=== PATIENT | female | born 1975 | race American Indian/Alaskan Native ===

== ENCOUNTER 2017-01-12 20:01 | Emergency (ER) | payer SELFPAY ==
[2017-01-12 20:21] VITALS: BP 146/95
[2017-01-12 21:03] LABS: Basophils % (Auto) 0.7 % (0.0-1.8); Eosinophils % (Auto) 1.4 % (0.0-4.3); Hematocrit 28.1 % (30.3-42.9); Hemoglobin 8.9 gm/dl (10.1-14.3); Mean Corpuscular HGB Conc 32 % (30-34); Mean Corpuscular Hemoglobin 27 pg (28-32); Mean Corpuscular Volume 84 fl (79-97); Platelet Count 350 K/mm3 (140-440); Red Blood Count 3.37 M/mm3 (3.65-5.03); Red Cell Distribution Width 18.5 % (13.2-15.2); White Blood Count 7.4 K/mm3 (4.5-11.0)
[2017-01-12 21:08] LABS: Anion Gap 17 mmol/L; BUN/Creatinine Ratio 18.75; Blood Urea Nitrogen 15 mg/dL (7-17); Calcium 8.3 mg/dL (8.4-10.2); Carbon Dioxide 23 mmol/L (22-30); Chloride 106.2 mmol/L (98-107); Glucose 105 mg/dL (65-100); Potassium 3.9 mmol/L (3.6-5.0); Sodium 142 mmol/L (137-145)
--- NOTE | 2017-01-12 21:09 | Cat Scan Report ---
FINAL REPORT PROCEDURE: CT HEAD/BRAIN WO CON TECHNIQUE: Computerized tomography of the head was performed without contrast material. HISTORY: neuro deficits \T\lt; 6hrs or sx present upon awakening COMPARISON: No prior studies are available for comparison. FINDINGS: Skull and scalp: Normal. Paranasal sinuses: Normal. Ventricles and subarachnoid spaces: Normal. Cerebrum: No evidence of hemorrhage, acute infarction or mass . Cerebellum and brainstem: No evidence of hemorrhage, acute infarction or mass. Vasculature: Normal. Comments: None. IMPRESSION: Normal Examination
[2017-01-12 21:12] LABS: INR 1.04 (0.87-1.13)
[2017-01-12 21:13] LABS: Partial Thromboplastin Time 26.9 Sec. (24.2-36.6)
== END 2017-01-12 22:57 | disposition left against medical advice (07) ==
LOC: ED 20:01
DX: R07.9 Chest pain, unspecified (principal); Z53.21 Procedure and treatment not carried out due to patient leaving prior to being seen by health care provider
CPT/HCPCS: 36415; 70450; 80048; 84484; 84703; 85025; 85610; 85730; 93005; 93010

== ENCOUNTER 2017-09-14 23:53 | Emergency (ER) | payer MEDICAID ==
[2017-09-15 00:54] VITALS: BP 132/77
--- NOTE | 2017-09-15 03:45 | Emergency Department Report ---
ED Recheck HPI - General Chief Complaint: Recheck/Abnormal Lab/Rx Stated Complaint: BP HIGH Time Seen by Provider: 09/15/17 03:41 Source: patient Mode of arrival: Ambulatory Limitations: No Limitations - History of Present Illness Initial Comments: 42-year-old obese female comes in for evaluation of blood pressure and blurred vision at the urgent care today. Patient states that her blood pressure is 187/ 107 at urgent care. Patient reports that she's missed 3 days of her clonidine. Patient was instructed to come to the emergency room for evaluation. Patient went home took her daily dose of clonidine prior to coming to the emergency room. Patient arrived resolved and blurred vision blood pressure normotensive at 132/77 she denies any chest pain or shortness of breathing no other complaints. Patient reports that she is almost out of her prescriptions and has no refills and requesting a medication refill. Patient is followed by Dr. Guanaco Lion and has not seen him in over a year. Patient reports that she is not able to follow up with her PCP in about 2 weeks secondary to this she works. Patient has no known drug allergies takes clonidine 0.1 mg daily. MD Complaint: medication refill request -: days(s) (1) Returns Today for: request for prescription Context: ran out of medication Associated Symptoms: other (blurred vision which has resolved since taking her blood pressure medicine) - Related Data Previous Rx's Medication Instructions Recorded Last Taken Type Amoxicillin/K Clav Tab [Augmentin 1 tab PO Q12HR #20 tab 07/20/15 Unknown Rx 875 mg] Ibuprofen [Motrin] 600 mg PO Q8H PRN #30 tablet 07/20/15 Unknown Rx Lisinopril/Hydrochlorothiazide 1 tab PO BID #30 tablet 07/20/15 Unknown Rx [Zestoretic 20-25 mg] Prednisone [predniSONE 10 mg 10 mg PO .TAPER #1 tab.ds.pk 07/20/15 Unknown Rx (6-Day Pack, 21 Tabs)] Promethazine /Codeine 5 ml PO Q6H PRN #150 udc 07/20/15 Unknown Rx [Phenergan/Codeine 6.25-10 mg/5 ml] cloNIDine [Catapres] 0.1 mg PO BID #60 tablet 09/15/17 Unknown Rx Allergies Allergy/AdvReac Type Severity Reaction Status Date / Time No Known Allergies Allergy Unverified 07/20/15 19:58 ED Review of Systems ROS: Stated complaint: BP HIGH Other details as noted in HPI Constitutional: denies: chills, fever Eyes: denies: eye pain, eye discharge, vision change ENT: denies: ear pain, throat pain Respiratory: denies: cough, shortness of breath, wheezing Cardiovascular: denies: chest pain, palpitations Endocrine: no symptoms reported Gastrointestinal: denies: abdominal pain, nausea, diarrhea Genitourinary: denies: urgency, dysuria, discharge Musculoskeletal: denies: back pain, joint swelling, arthralgia Skin: denies: rash, lesions Neurological: denies: headache, weakness, paresthesias Psychiatric: denies: anxiety, depression Hematological/Lymphatic: denies: easy bleeding, easy bruising ED Past Medical Hx - Past Medical History Previous Medical History?: Yes Hx Hypertension: Yes Additional medical history: Obesity. Family Hx CVA MTR 67, Ftr 79 both of CVA - Surgical History Past Surgical History?: No - Social History Smoking Status: Never Smoker Substance Use Type: None - Medications Home Medications: Home Medications Medication Instructions Recorded Confirmed Last Taken Type Amoxicillin/K Clav Tab [Augmentin 1 tab PO Q12HR #20 tab 07/20/15 Unknown Rx 875 mg] Ibuprofen [Motrin] 600 mg PO Q8H PRN #30 tablet 07/20/15 Unknown Rx Lisinopril/Hydrochlorothiazide 1 tab PO BID #30 tablet 07/20/15 Unknown Rx [Zestoretic 20-25 mg] Prednisone [predniSONE 10 mg 10 mg PO .TAPER #1 tab.ds.pk 07/20/15 Unknown Rx (6-Day Pack, 21 Tabs)] Promethazine /Codeine 5 ml PO Q6H PRN #150 udc 07/20/15 Unknown Rx [Phenergan/Codeine 6.25-10 mg/5 ml] cloNIDine [Catapres] 0.1 mg PO BID #60 tablet 09/15/17 Unknown Rx ED Physical Exam - General Limitations: No Limitations General appearance: alert, in no apparent distress, appears intoxicated, obese - Head Head exam: Present: atraumatic, normocephalic - Eye Eye exam: Present: normal appearance - ENT ENT exam: Present: mucous membranes moist - Neck Neck exam: Present: normal inspection - Respiratory Respiratory exam: Present: normal lung sounds bilaterally. Absent: respiratory distress - Cardiovascular Cardiovascular Exam: Present: regular rate, normal rhythm. Absent: systolic murmur, diastolic murmur, rubs, gallop - GI/Abdominal GI/Abdominal exam: Present: soft, normal bowel sounds - Extremities Exam Extremities exam: Present: normal inspection - Back Exam Back exam: Present: normal inspection - Neurological Exam Neurological exam: Present: alert, oriented X3 - Psychiatric Psychiatric exam: Present: normal affect, normal mood - Skin Skin exam: Present: warm, dry, intact, normal color. Absent: rash ED Course Vital Signs 09/15/17 00:48 Temperature 98.6 F Pulse Rate 76 Respiratory 16 Rate Blood Pressure 132/77 O2 Sat by Pulse 100 Oximetry ED Recheck MDM - Medical Decision Making Patient has been evaluated by this provider fast track. Patient's blood pressure has improved since taking her medication from home. Her blurred vision has resolved. Patient denies any chest pain shortness of breathing. Patient is stable to be discharged home to take her current clonidine 0.1 mg daily. I will refill patient's medication and have her follow-up with Dr. Montiel. Patient verbalized understanding Critical care attestation.: If time is entered above; I have spent that time in minutes in the direct care of this critically ill patient, excluding procedure time. ED Disposition Clinical Impression: Medication refill, Obesity (BMI 30-39.9) Hypertension Qualifiers: Hypertension type: unspecified Qualified Code(s): I10 - Essential (primary) hypertension Disposition: DC- TO HOME OR SELFCARE Is pt being admited?: No Does the pt Need Aspirin: No Condition: Stable Instructions: Hypertension (ED) Additional Instructions: Please take your blood pressure medicine every day as prescribed. Please follow up with her primary care provider for continuity of care and chronic disease management. Prescriptions: cloNIDine [Catapres] 0.1 mg PO BID #60 tablet Referrals: CLARE SALCEDO [Other] - 3-5 Days Forms: Work/School Release Form(ED)
== END 2017-09-15 03:45 | disposition home or self-care (01) ==
LOC: ED 23:53
DX: I10 Essential (primary) hypertension (principal); Z76.0 Encounter for issue of repeat prescription
CPT/HCPCS: 93005; 93010; 99281

== ENCOUNTER 2021-11-18 18:23 | Emergency (ER) | payer SELFPAY ==
[2021-11-18] MEDS ORDERED: KETOROLAC 30 MG/1 ML INJ IM ONE (22:37)
--- NOTE | 2021-11-18 22:57 | Emergency Department Report ---
ED General Adult HPI - General Chief complaint: Headache Stated complaint: BACK PAIN/HEADACHE Time Seen by Provider: 11/18/21 22:35 Source: patient Mode of arrival: Ambulatory Limitations: No Limitations - History of Present Illness Initial comments: Is a 46-year-old female history of obesity and sciatica. Patient presents for low back pain that radiates to left lower extremity. Symptoms have been persistent for the past month. Symptoms are now exacerbating headaches. Current headache is rated at 4/10 frontal. There is no photophobia no nausea no vomiting no fever chills no throat or ear pain. No back pain is chronic for this patient there is been no loss or decrease in bowel or bladder function. There is no weakness however there is burning tingling sensation that radiates from low back to left lower leg. Patient denies fall injury or trauma. Patient states she sits mostly in her job as she is sedentary. Patient denies other symptoms. - Related Data Previous Rx's Medication Instructions Recorded Last Taken Type Amoxicillin/K Clav Tab [Augmentin 1 tab PO Q12HR #20 tab 07/20/15 Unknown Rx 875 mg] Ibuprofen [Motrin] 600 mg PO Q8H PRN #30 tablet 07/20/15 Unknown Rx Lisinopril/Hydrochlorothiazide 1 tab PO BID #30 tablet 07/20/15 Unknown Rx [Zestoretic 20-25 mg] Prednisone [predniSONE 10 mg 10 mg PO .TAPER #1 tab.ds.pk 07/20/15 Unknown Rx (6-Day Pack, 21 Tabs)] Promethazine /Codeine 5 ml PO Q6H PRN #150 udc 07/20/15 Unknown Rx [Phenergan/Codeine 6.25-10 mg/5 ml] cloNIDine [Catapres] 0.1 mg PO BID #60 tablet 09/15/17 Unknown Rx Cyclobenzaprine [Flexeril] 10 mg PO QHS PRN #10 tablet 02/07/19 Unknown Rx Naproxen 500 mg PO BID PRN #20 tablet 02/07/19 Unknown Rx Cyclobenzaprine [Flexeril] 10 mg PO Q8H PRN #30 tab 11/18/21 Unknown Rx Menthol/Camphor [[place] 1 applicatio TP Q6H PRN #1 tube 11/18/21 Unknown Rx Ointment] Naproxen 500 mg PO BID PRN #30 tab 11/18/21 Unknown Rx Allergies Allergy/AdvReac Type Severity Reaction Status Date / Time No Known Allergies Allergy Unverified 07/20/15 19:58 ED Review of Systems ROS: Stated complaint: BACK PAIN/HEADACHE Other details as noted in HPI Constitutional: denies: chills, fever Eyes: denies: eye pain, eye discharge, vision change ENT: denies: ear pain, throat pain Respiratory: denies: cough, shortness of breath, wheezing Cardiovascular: denies: chest pain, palpitations Endocrine: no symptoms reported Gastrointestinal: denies: abdominal pain, nausea, vomiting, diarrhea Genitourinary: as per HPI Musculoskeletal: back pain Skin: denies: rash, lesions Neurological: headache. denies: weakness, numbness, paresthesias, confusion, vertigo Psychiatric: denies: anxiety, depression Hematological/Lymphatic: denies: easy bleeding, easy bruising ED Past Medical Hx - Past Medical History Hx Hypertension: Yes Additional medical history: Obesity. Family Hx CVA MTR 67, Ftr 79 both of CVA - Social History Smoking Status: Never Smoker Substance Use Type: None - Medications Home Medications: Home Medications Medication Instructions Recorded Confirmed Last Taken Type Amoxicillin/K Clav Tab [Augmentin 1 tab PO Q12HR #20 tab 07/20/15 Unknown Rx 875 mg] Ibuprofen [Motrin] 600 mg PO Q8H PRN #30 tablet 07/20/15 Unknown Rx Lisinopril/Hydrochlorothiazide 1 tab PO BID #30 tablet 07/20/15 Unknown Rx [Zestoretic 20-25 mg] Prednisone [predniSONE 10 mg 10 mg PO .TAPER #1 tab.ds.pk 07/20/15 Unknown Rx (6-Day Pack, 21 Tabs)] Promethazine /Codeine 5 ml PO Q6H PRN #150 udc 07/20/15 Unknown Rx [Phenergan/Codeine 6.25-10 mg/5 ml] cloNIDine [Catapres] 0.1 mg PO BID #60 tablet 09/15/17 Unknown Rx Cyclobenzaprine [Flexeril] 10 mg PO QHS PRN #10 tablet 02/07/19 Unknown Rx Naproxen 500 mg PO BID PRN #20 tablet 02/07/19 Unknown Rx Cyclobenzaprine [Flexeril] 10 mg PO Q8H PRN #30 tab 06/30/22 Unknown Rx Menthol/Camphor [[place] 1 applicatio TP Q6H PRN #1 tube 11/18/21 Unknown Rx Ointment] Naproxen 500 mg PO BID PRN #30 tab 11/18/21 Unknown Rx ED Physical Exam - General Limitations: No Limitations General appearance: alert, in no apparent distress - Head Head exam: Present: normocephalic, normal inspection - Eye Eye exam: Present: normal appearance, PERRL, EOMI. Absent: conjunctival injection, nystagmus Pupils: Present: normal accommodation - ENT ENT exam: Present: mucous membranes moist - Neck Neck exam: Present: normal inspection, full ROM. Absent: tenderness, meningismus, lymphadenopathy - Respiratory Respiratory exam: Present: normal lung sounds bilaterally. Absent: respiratory distress, wheezes, rhonchi, stridor, chest wall tenderness - Cardiovascular Cardiovascular Exam: Present: regular rate, normal rhythm, normal heart sounds. Absent: systolic murmur, diastolic murmur, rubs, gallop - GI/Abdominal GI/Abdominal exam: Present: soft, normal bowel sounds. Absent: distended, tenderness - Rectal Rectal exam: Present: deferred - Extremities Exam Extremities exam: Present: normal inspection, full ROM, normal capillary refill - Expanded Lower Extremity Exam Left Hip exam: Present: full ROM. Absent: tenderness Upper Leg exam: Present: full ROM. Absent: tenderness Knee exam: Present: full ROM. Absent: tenderness Lower Leg exam: Present: full ROM. Absent: tenderness Ankle exam: Present: full ROM. Absent: tenderness Foot/Toe exam: Present: full ROM. Absent: tenderness Neuro vascular tendon exam: Absent: pulse deficit, motor deficit, sensory deficit, tendon deficit Gait: Positive: observed and normal - Back Exam Back exam: Present: normal inspection, full ROM, paraspinal tenderness. Absent: CVA tenderness (R), CVA tenderness (L), vertebral tenderness - Expanded Back Exam Expanded Back exam: Absent: saddle anesthesia Back exam: Sciatic Notch Tenderness: Left, Positive Straight Leg Raise: Left, Negative Straight Leg Raising: Right - Neurological Exam Neurological exam: Present: alert, oriented X3, CN II-XII intact, normal gait, reflexes normal. Absent: motor sensory deficit - Expanded Neurological Exam Expanded Patient oriented to: Present: person, place, time Motor strength exam: RUE: 5, LUE: 5, RLE: 5, LLE: 5 Best Eye Response ([place]): (4) open spontaneously Best Motor Response ([place]): (6) obeys commands Best Verbal Response ([place]): (5) oriented [place] Total: 15 - Psychiatric Psychiatric exam: Present: normal affect, normal mood - Skin Skin exam: Present: warm, dry, intact, normal color. Absent: rash ED Course Vital Signs 11/18/21 18:46 Temperature 98.5 F Pulse Rate 89 Respiratory 16 Rate Blood Pressure 166/85 [Left] O2 Sat by Pulse 97 Oximetry ED Medical Decision Making - Medical Decision Making Is a 46-year-old female history of obesity and sciatica. Patient presents for low back pain that radiates to left lower extremity. Symptoms have been persistent for the past month. Symptoms are now exacerbating headaches. Current headache is rated at 4/10 frontal. There is no photophobia no nausea no vomiting no fever chills no throat or ear pain. No back pain is chronic for this patient there is been no loss or decrease in bowel or bladder function. There is no weakness however there is burning tingling sensation that radiates from low back to left lower leg. Patient denies fall injury or trauma. Patient states she sits mostly in her job as she is sedentary. Patient denies other symptoms. Pain is improved with medications given in ED. This is sciatica. Plan NSAIDs muscle relaxants moist heat therapy as directed. Follow-up primary care doctor in 2 to 3 days. Patient verbalized agreement understanding with discharge plan. Patient DC'd home in stable condition at this time. Patient currently alert oriented x3 amatory steady gait with no acute distress. Critical care attestation.: If time is entered above; I have spent that time in minutes in the direct care of this critically ill patient, excluding procedure time. ED Disposition Clinical Impression: Low back strain Qualifiers: Encounter type: initial encounter Qualified Code(s): S39.012A - Strain of muscle, fascia and tendon of lower back, initial encounter Headache Qualifiers: Headache type: unspecified Headache chronicity pattern: unspecified pattern Intractability: not intractable Qualified Code(s): R51.9 - Headache, unspecified Disposition: 01 HOME / SELF CARE / HOMELESS Is pt being admited?: No Does the pt Need Aspirin: No Condition: Stable Instructions: Low Back Sprain or Strain Rehab-SportsMed, General Headache Without Cause Additional Instructions: Take medications as prescribed, moist heat therapy to back as directed, back exercises, follow-up with your primary care doctor in 2 to 3 days. Return to emergency department should symptoms worsen. Prescriptions: Cyclobenzaprine [Flexeril] 10 mg PO Q8H PRN #30 tab PRN Reason: Muscle Spasm Naproxen 500 mg PO BID PRN #30 tab PRN Reason: Pain Menthol/Camphor [[place] Ointment] 1 applicatio TP Q6H PRN #1 tube PRN Reason: Pain Referrals: MELINDA KUHN MD [Staff Physician] - 3-5 Days Forms: Work/School Release Form(ED) Time of Disposition: 23:05
[2021-11-18 23:13] VITALS: BP 162/81
== END 2021-11-19 00:01 | disposition home or self-care (01) ==
LOC: ED 18:23
DX: S39.012A Strain of muscle, fascia and tendon of lower back, initial encounter (principal); R51.9 Headache, unspecified; I10 Essential (primary) hypertension; Z79.899 Other long term (current) drug therapy; X58.XXXA Exposure to other specified factors, initial encounter; Y93.89 Activity, other specified; Y92.89 Other specified places as the place of occurrence of the external cause; Y99.8 Other external cause status
CPT/HCPCS: 96372; 99282; J1885